=== PATIENT | female | born 1990 ===

== ENCOUNTER 2021-01-18 09:30 | Outpatient (CLI) | payer OTHER ==
[~2021-01-18 09:30] MED LIST: PREDNISONE5 MG/DOSE- PO; TORADOL10 MG PO
== END 2021-01-18 10:00 | disposition home or self-care (01) ==
LOC: PPH VACUNA 09:30
PROVIDERS: ATTEND Emergency Medicine Pediatric Emergency Medicine
DX: Z23 Encounter for immunization (principal)